=== PATIENT | male | born 1970 | race Hispanic/Latino ===

== ENCOUNTER 2020-02-17 15:05 | Outpatient (CLI) | payer OTHER, SELFPAY ==
--- NOTE | ~2020-02-17 | XR_ITS ---
XR lumbar spine 2-3V DATE: 02/17/2020 15:49 INDICATION: Persistent low back pain, greater on the right TECHNIQUE: AP, lateral, coned lateral lumbosacral views COMPARISON: None FINDINGS: There are 6 functional lumbar vertebrae. There is moderate degenerative disc disease of the mid and lower lumbar spine. No fracture or bone destruction is evident. The included lower thoracic and lumbar pedicles are intac t. The sacroiliac joints are intact. IMPRESSION: Moderate degenerative disc disease of the mid and lower lumbar spine Reviewed, dictated and finalized at location A. IMPRESSION: Moderate degenerative disc disease of the mid and lower lumbar spin e
== END 2020-02-17 15:06 | disposition home or self-care (01) ==
PROVIDERS: PCP Family Medicine Adolescent Medicine; Visit Provider Family Medicine Adolescent Medicine
DX: M51.36 Other intervertebral disc degeneration, lumbar region (principal)
CPT/HCPCS: 72100

== ENCOUNTER → 2020-12-15 14:14 | Outpatient (CLI) | payer OTHER, SELFPAY ==
--- NOTE | ~2020-12-15 | XR_ITS ---
XR lumbar spine 2-3V DATE: 12/15/2020 14:36 INDICATION: Low back pain TECHNIQUE: AP, lateral, coned lateral lumbosacral views COMPARISON: 02/17/2020 lumbar spine FINDINGS: There are 6 functional lumbar vertebrae. No fracture or bone destruction or spondylolisthesis. The included lower thoracic and lumbar pedicles are intact. Stable moderate degenerative disc disease of the mid and lower lumbar spine. The sacroiliac joints are intact. IMPRESSION: Moderate degenerative disc disease; no significant change since 02/17/2020 Reviewed, dictated and finalized at location A. IMPRESSION: Moderate degenerative disc disease; no significant change since 01/30
== END ==
PROVIDERS: PCP Family Medicine Adolescent Medicine; Visit Provider Family Medicine Adolescent Medicine
DX: M47.816 Spondylosis without myelopathy or radiculopathy, lumbar region (principal)
CPT/HCPCS: 72100

== ENCOUNTER 2021-06-02 06:37 | Outpatient (CLI) | payer OTHER, SELFPAY ==
--- NOTE | ~2021-06-02 | MR_ITS ---
EXAMINATION: MR lumbar spine wo con EXAM DATE: 06/02/2021 07:32 INDICATION: Persistent right-sided sciatica. TECHNIQUE: Multi-sequential, multiplanar MR images of the lumbar spine were obtained without contrast . Sagittal T1, T2, T2 fat saturation images. Axial T2 weighted images. There is no prior study for comparison. FINDINGS: The vertebral bodies are aligned in the AP dimension. There is mild to moderate disc diseas e at L4-5 and L5-S1. The conus medullaris terminates at the T12-L1 level and has normal signal intens ity and morphology. There are no suspicious marrow signal abnormalities. Paraspinal soft tissue is u nremarkable. Level by level evaluation: T12-L1: Disc does not extend beyond the endplate margin. Facet arthropathy: None. Neural foraminal stenosis: No stenosis. Central canal stenosis: No stenosis. L1-L2: Disc does not extend beyond the endplate margin. Facet arthropathy: Minimal. Neural foraminal stenosis: No stenosis. Central canal stenosis: No stenosis. L2-L3: There is a minimal diffuse disc bulge. Facet arthropathy: Mild. Neural foraminal stenosis: No stenosis. Central canal stenosis: No stenosis. L3-L4: There is a mild diffuse disc bulge. Facet arthropathy: Mild. Neural foraminal stenosis: Mild right, minimal left. Central canal stenosis: Mild. L4-L5: There is a moderate diffuse disc bulge. Facet arthropathy: Mild to moderate. Neural foraminal stenosis: Mild to moderate bilateral. Central canal stenosis: Moderate. L5-S1: There is a mild to moderate diffuse disc bulge, small right central annular protrusion, annula r fissure causing moderate stenosis right, some mass effect on traversing right L5-S1 nerve root. Facet arthropathy: Mild. Neural foraminal stenosis: Moderate bilateral. Central canal stenosis: Overall mild. IMPRESSION: 1. Mild to moderate lower lumbar predominant spondylosis. Reviewed, dictated and finalized at location B.
== END 2021-06-02 06:38 | disposition home or self-care (01) ==
PROVIDERS: PCP Family Medicine Adolescent Medicine; Visit Provider Family Medicine Adolescent Medicine
DX: M54.31 Sciatica, right side (principal); M47.816 Spondylosis without myelopathy or radiculopathy, lumbar region
CPT/HCPCS: 72148

== ENCOUNTER → 2023-06-20 15:11 | Outpatient (CLI) | payer OTHER, SELFPAY ==
--- NOTE | ~2023-06-20 | XR_ITS ---
XR_[id number] 06/20/2023 15:35 INDICATION: Left knee pain PROCEDURE: 2 views left knee COMPARISON: No prior studies for comparison. FINDINGS: Fracture, dislocation or subluxation is not identified. No joint effusion. No significant j oint space narrowing. The soft tissues appear within normal limits. No foreign bodies are identified . IMPRESSION: 1: No significant bone or joint abnormality. Reviewed, dictated and finalized at location A.
== END ==
PROVIDERS: PCP Nurse Practitioner Family; Visit Provider Nurse Practitioner Family
DX: M25.562 Pain in left knee (principal)
CPT/HCPCS: 73560

== ENCOUNTER 2023-09-08 14:39 | Outpatient (CLI) | payer OTHER, SELFPAY ==
--- NOTE | 2023-09-12 11:44 | WPDPFTINT ---
PFT Procedure Performed PFT Procedure Performed Spirometry with Pre/Post Bronchodilator Plethysmography (Lung Vol) Diffusing Cap (DLCO) Flow Vol Loop PFT Interpretation DOS: 09/08/2023 REQUESTING: Miranda Valdez APRN REASON FOR TESTING: chronic cough, tobacco use PULMONARY FUNCTION TESTS Testing performed and results interpreted in accordance with the 2019 and 2005 ATS /ERS Task Force guidelines respectively using the GLI 2012 reference equations. Repeatability of spirometry FEV1 maneuver pre-bronchodilator is Grade B and post- bronchodilator is Grade A. All testing completed with optimal patient effort and comfort. Spirometry: Pre-bronchodilator FEV1 is 1.68 L, 54%, moderately decreased. Pre-bronchodilator FVC is 3.43 L, 87%, normal. FEV1/FVC ratio is 49%, reduced, consistent with airflow obstruction. After bronchodilator administration, there was a 17% increase in the FEV1, 1.97 L, 63% predicted. After bronchodilator, there was a 15% increase in the FVC, 3.94 L, 100% predicted. The FEV1/ FVC ratio is 50% predicted, still below normal. These are significant responses to bronchodilator. Lung volumes: Total lung capacity is 7.62 L, 131%, elevated consistent with hyperinflation. The slow vital capacity is 4.03 L, 102% predicted, higher than the forced vital capacity. Residual volume is 3.59 L, 200% predicted, consistent with severe air trapping. RV/TLC is 47%, increased, consistent with air trapping. Diffusion: DLCO is 18.2, 67% predicted, decreased. DLCO / VA 3.39 L, 71%, decreased. Flow volume loop: There is a coving of the expiratory limb. IMPRESSION: Moderate obstructive ventilatory impairment with robust response to bronchodilator, mild hyperinflation, severe air trapping, mild diffusion impairment which does not correct for alveolar volume. This pattern can be seen in emphysema. No prior studies for comparison. Chikis Hernandez MD
== END 2023-09-08 14:40 | disposition home or self-care (01) ==
LOC: ANHPFT 14:41
PROVIDERS: PCP Nurse Practitioner Family; Visit Provider Nurse Practitioner Family
DX: R05.3 Chronic cough (principal); Z72.0 Tobacco use; R94.2 Abnormal results of pulmonary function studies
CPT/HCPCS: 94060; 94726; 94729

== ENCOUNTER 2024-06-10 01:11 | Day surgery (SDC) | payer OTHER, SELFPAY ==
[2024-06-06 12:10] VITALS: BMI 23.8
[2024-06-10 07:56] VITALS: BP 120/83; PULSE 72; RESP 18; TEMP 36.3; O2SAT 100
[2024-06-10] MEDS: LACTATED RINGERS 1,000 ML 150 ML IV CONT (08:09)
--- NOTE | 2024-06-10 08:46 | WPDANESEPPF ---
Anes - Initial Pre Proc Eval Procedure: Operation Date: 06/10/24 09:00 Proposed Procedures p Screening Colonoscopy - Donny Garcia DO Date/Time: 06/10/24 08:46 Surgeon: Donny Garcia DO Pre Op Diagnosis: Screening for malignant neoplasm of colon Patient Data Age: 53 Gender: M Height: 1.63 m Weight: 61 kg Last Vital Signs Temp 97.4 F L 06/10/24 07:56 Pulse 72 06/10/24 07:56 Resp 18 06/10/24 07:56 BP 120/83 06/10/24 07:56 Pulse Ox 100 06/10/24 07:56 O2 Del Method Room Air 06/10/24 07:56 Allergies Allergy/AdvReac Type Severity Reaction Status Date / Time No Known Allergies Allergy Mild Verified 06/10/24 07:54 Home Medications Medication Instructions Recorded Confirmed Type lorazepam 0.5 mg tablet 0.5 mg PO BID PRN anxiety #30 tabs 07/31/23 06/10/24 Rx tiotropium bromide 2.5 2 puff inhalation DAILY #4 grams 09/13/23 06/10/24 Rx mcg/actuation mist for inhalation (Spiriva Respimat) lisinopril 10 mg tablet 10 mg PO DAILY #90 tabs 10/09/23 06/10/24 Rx albuterol sulfate 90 mcg/actuation 2 inh inhalation .COMPLEX PRN 1-2 11/01/23 06/10/24 Rx aerosol inhaler puffs every 4-6 hours as needed #8.5 grams trazodone 100 mg tablet See Rx Instructions .Route 12/05/23 06/10/24 Rx .COMPLEX #30 tabs valacyclovir 500 mg tablet 500 mg PO DAILY #30 tabs 02/04/24 06/10/24 Rx baclofen 20 mg tablet 20 mg PO TID #30 tabs 03/27/24 06/10/24 Rx tadalafil 5 mg tablet 5 mg PO DAILY #30 tabs 04/29/24 06/10/24 Rx gabapentin 600 mg tablet 600 mg PO BID #60 tabs 06/04/24 06/10/24 Rx Patient hx anesthesia problems: none Family hx anesthesia problems: none Results Review: All pre-operative results and documents have been reviewed as part of the pre-operative evaluation. [facility], [facility] Past Medical History Medical History (Updated 06/05/24 @ 13:57 by Marcelle Wan) History of meniscal tear right knee Hx of hepatitis C From tattoos. Treated. Surgical History Surgical History History of knee surgery 2018: meniscus repair Family History Family History Father Lymphoma Social History Social History Smoking packs per day: 1 Smoking cigarettes per day: 20.0 Years smoked: 45 Smoking pack-years: 45.00 Smoking status: Current every day smoker Tobacco type: cigarettes Second hand tobacco smoke exposure: No Alcohol intake: current Drinks per week: 30 Alcohol use details: BEERS Substance use: current Substance use type: marijuana Other substance usage details: COUPLE TIMES A WEEK AT Lack of Transportation: No Lack of Food: Never True Current Housing: I Have Housing Concerned About Future Housing: No Difficulty Paying Gas/Electric Bills: YES Difficulty Paying for Meds: No Currently Unemployed: No Education: Don't Know Difficulty w/ Childcare or Family Care: No Living arrangements: with family Occupation/Education: unemployed Gender identity (if verbalized by the patient): Male Sexual Orientation (if Verbalized by the Patient): Straight or Heterosexual Spiritual care concerns: No Agree to blood products: Yes Anes - Eval Final PreProcedure Day of Procedure 06/10/24 08:46 Patient weight: normal Heart: regular rate and rhythm Lungs: clear to auscultation Airway: Mallampati scale class II Neurological: alert and oriented Last oral intake: >/= 8 hours ASA classification: III Emergent: no Anesthetic plan: proceed Anesthesia type and monitoring: general GIVS and standard monitoring Results Review: All pre-operative results and documents have been reviewed as part of the pre-operative evaluation. Informed Consent: The patient's anesthetic plan and its attendant risks and benefits were discussed with the patient/family/POABonnie Hawkins
--- NOTE | 2024-06-10 09:01 | PM.IMHP ---
H&P: HPI History of Present Illness Date/Time: 06/10/24 09:01 Chief Complaint: screening for colorectal cancer Narrative: this is a 53-year-old man who presents for colonoscopy. He has never had a colonoscopy before. He denies any family history of colon cancer. He was having some issues with hemorrhoids recently and was seen Dr. Wright for potential treatment. Colonoscopy was recommended prior to proceeding with hemorrhoid treatment. Review of Systems Review of Systems: All systems reviewed & are unremarkable except as noted in HPI and below Constitutional: Constitutional: Denies chills, Denies fever(s), Denies headache(s) and Denies weight loss Eyes: Eyes: Denies change in vision ENT: Denies dizziness, Denies headache(s), Denies neck mass and Denies throat swelling Cardiovascular: Cardiovascular: Denies chest pain, Denies lightheadedness and Denies dyspnea Respiratory: Respiratory: Denies cough, Denies dyspnea and Denies wheezing Gastrointestinal: Gastrointestinal: Denies abdominal pain, Denies change in bowel habits, Denies nausea and Denies vomiting Genitourinary: Genitourinary: Denies hematuria and Denies dysuria Musculoskeletal: Musculoskeletal: Reports as per HPI Integumentary/Breasts: Skin/Breast: Reports as per HPI Neurologic: Denies dizziness and Denies headache(s) Allergic/Immunologic: Allergic/Immunologic: Denies throat swelling and Denies wheezing FOR[facility]LY [facility], [facility] Past Medical History Medical History (Updated 06/10/24 @ 09:02 by Donny Garcia DO) History of meniscal tear right knee Hx of hepatitis C From tattoos. Treated. Surgical History Surgical History History of knee surgery 2018: meniscus repair Family History Family History Father Lymphoma Social History Social History Smoking packs per day: 1 Smoking cigarettes per day: 20.0 Years smoked: 45 Smoking pack-years: 45.00 Smoking status: Current every day smoker Tobacco type: cigarettes Second hand tobacco smoke exposure: No Alcohol intake: current Drinks per week: 30 Alcohol use details: BEERS Substance use: current Substance use type: marijuana Other substance usage details: COUPLE TIMES A WEEK AT Lack of Transportation: No Lack of Food: Never True Current Housing: I Have Housing Concerned About Future Housing: No Difficulty Paying Gas/Electric Bills: YES Difficulty Paying for Meds: No Currently Unemployed: No Education: Don't Know Difficulty w/ Childcare or Family Care: No Living arrangements: with family Occupation/Education: unemployed Gender identity (if verbalized by the patient): Male Sexual Orientation (if Verbalized by the Patient): Straight or Heterosexual Spiritual care concerns: No Agree to blood products: Yes Meds Home Medications and Allergies Home Medications Medication Instructions Recorded Confirmed Type lorazepam 0.5 mg tablet 0.5 mg PO BID PRN anxiety #30 tabs 07/31/23 06/10/24 Rx tiotropium bromide 2.5 2 puff inhalation DAILY #4 grams 09/13/23 06/10/24 Rx mcg/actuation mist for inhalation (Spiriva Respimat) lisinopril 10 mg tablet 10 mg PO DAILY #90 tabs 10/09/23 06/10/24 Rx albuterol sulfate 90 mcg/actuation 2 inh inhalation .COMPLEX PRN 1-2 11/01/23 06/10/24 Rx aerosol inhaler puffs every 4-6 hours as needed #8.5 grams trazodone 100 mg tablet See Rx Instructions .Route 12/05/23 06/10/24 Rx .COMPLEX #30 tabs valacyclovir 500 mg tablet 500 mg PO DAILY #30 tabs 02/04/24 06/10/24 Rx baclofen 20 mg tablet 20 mg PO TID #30 tabs 03/27/24 06/10/24 Rx tadalafil 5 mg tablet 5 mg PO DAILY #30 tabs 04/29/24 06/10/24 Rx gabapentin 600 mg tablet 600 mg PO BID #60 tabs 06/04/24 06/10/24 Rx Allergies Allergy/AdvReac Type Severity Reaction Status Date
[2024-06-10 09:24] VITALS: BP 91/62; PULSE 72; RESP 19; O2SAT 98
[2024-06-10 09:34] VITALS: BP 116/77; PULSE 69; RESP 16; O2SAT 100
[2024-06-10 09:44] VITALS: BP 120/89; PULSE 63; RESP 20; O2SAT 99
== END 2024-06-10 09:55 | disposition home or self-care (01) ==
PROVIDERS: PCP Family Medicine Adolescent Medicine; Visit Provider Surgery
PROC: 0DJD8ZZ Inspection of Lower Intestinal Tract, Via Natural or Artificial Opening Endoscopic (ICD-10-PCS; CPT 45378; principal; 2024-06-10 09:00)
DX: Z12.11 Encounter for screening for malignant neoplasm of colon (principal); K64.8 Other hemorrhoids; F17.210 Nicotine dependence, cigarettes, uncomplicated; F12.90 Cannabis use, unspecified, uncomplicated; Z79.51 Long term (current) use of inhaled steroids; Z98.890 Other specified postprocedural states; Z80.7 Family history of other malignant neoplasms of lymphoid, hematopoietic and related tissues
CPT/HCPCS: 45378; J2704; J7120

== ENCOUNTER 2024-06-25 15:26 | Outpatient (CLI) | payer OTHER, SELFPAY ==
--- NOTE | 2024-06-25 15:30 | ECG_ITS ---
Test Date: 2024-06-25 15:43:11 Measurements Intervals [place] Rate: 76 P: -13 CO: 168 QRS: -3 QRSD: 87 T: 1 QT: 335 QTc: 378 Interpretive Statements SINUS RHYTHM DELAYED PRECORDIAL R/S TRANSITION BORDERLINE T WAVE ABNORMALITY- INFERIOR LEADS BASELINE ARTIFACT- I, II, AVR, AVL, AVF BORDERLINE ECG No previous ECG available for comparison Electronically Signed On 06-25-2024 15:50:09 CDT by Daniele Crews D.O.
== END 2024-06-25 15:27 | disposition home or self-care (01) ==
LOC: ANHSURGERY 15:32
PROVIDERS: PCP Family Medicine Adolescent Medicine; Visit Provider Surgery
DX: F17.210 Nicotine dependence, cigarettes, uncomplicated (principal); R94.31 Abnormal electrocardiogram [ECG] [EKG]
CPT/HCPCS: 93005

== ENCOUNTER 2024-06-28 00:49 | Day surgery (SDC) | payer OTHER, SELFPAY ==
[2024-06-21 14:07] VITALS: BMI 23.2
--- NOTE | 2024-06-21 14:13 | PC.NURSE ---
Report to the Outpatient Waiting Room, entrance under the green pavilion located off [facility], at time _0600_ on date _[id number]_. Planned Procedure Time: _0730_.? Time changes happen often and if your time is changed the preop area will call you the afternoon before. - You and your visitor will be asked to self-screen and do not enter if you have any COVID symptoms. Please call surgeon if you need to reschedule. - A mask is optional within the hospital at this time. - No food or drink from midnight until time of surgery and no smoking Take only the following medications with a SIP of water on the morning of surgery: ___Spiriva and if needed Albuterol DO NOT STOP ANY OF YOUR OTHER PRESCRIPTION MEDICATIONS PRIOR TO SURGERY EXCEPT THE FOLLOWING Medications to discontinue per physician None Please no make-up, nail filipino, hairspray, perfume, deodorant, or body powder the day of surgery.? No jewelry (including any body piercings) or valuables the day of surgery, leave them at home.? Please take a shower or bath the night before, or the morning of, surgery with an antibacterial soap.? Wear comfortable, loose fitting clothing.? - Jewelry must be removed prior to entering the operating room.? Rings and piercings that are not removed may be cut off. - The hospital will not accept responsibility for valuables.? - Please leave all valuables, including medications, at home the day of surgery. If you are going home after surgery, a licensed tank truck driver must drive you home.? - NO public transportation without another adult if you receive anesthesia. - We recommend that an adult stay with you for 24 hours following discharge. - We also recommend that you do not drive, make important decision, drink alcoholic beverages, or take any drugs that were not prescribed by your health care provider for at least 24 hours after your discharge time. Follow any additional instructions given to you from your surgeon. Telephone instructions given to __Michael___and asked if any additional questions and then verbalized understanding. Patient advised to call surgeon office or pre surgery nurse liaison [phone] if any additional questions.
[2024-06-28] VITALS (7 sets, daily range): BP systolic 112–143; BP diastolic 80–95; PULSE 74–91; RESP 14–20; TEMP 36.4–36.9; O2SAT 97–100
[2024-06-28] MEDS: LACTATED RINGERS 1,000 ML 30 ML IV CONT ×2 (06:45→08:58)
[2024-06-28] MEDS: ACETAMINOPHEN 500 MG TABLET 1000 MG PO (06:45)
[2024-06-28] MEDS: KETOROLAC 15 MG/ML VIAL (*BKC) IV PUSH ×2 (06:45→08:43)
--- NOTE | 2024-06-28 07:09 | WPDHPUPDATE1 ---
History and Physical Update Update Date/Time: 06/28/24 07:09 History and Physical has been reviewed, including an updated exam of the patient. There are NO changes in the patient's condition. Risks, benefits, and alternatives have been discussed and questions answered. Patient agrees to proceed with procedure.
--- NOTE | 2024-06-28 07:16 | WPDANESEPPF ---
Anes - Initial Pre Proc Eval Procedure: Operation Date: 06/28/24 07:30 Proposed Procedures p Transanal Hemorrhoidal Dearterialization - Kane Wright MD Date/Time: 06/28/24 07:16 Surgeon: Kane Wright MD Pre Op Diagnosis: grade 3 bleeding internal hemorrhoids Patient Data Age: 53 Gender: M Height: 1.63 m Weight: 59.8 kg Last Vital Signs Temp 98.4 F 06/28/24 06:45 Pulse 79 06/28/24 06:45 Resp 14 06/28/24 06:45 BP 124/81 06/28/24 06:45 Pulse Ox 100 06/28/24 06:45 O2 Del Method Room Air 06/28/24 06:45 Allergies Allergy/AdvReac Type Severity Reaction Status Date / Time No Known Allergies Allergy Mild Verified 06/28/24 07:04 Home Medications Medication Instructions Recorded Confirmed Type lorazepam 0.5 mg tablet 0.5 mg PO BID PRN anxiety #30 tabs 07/31/23 06/21/24 Rx tiotropium bromide 2.5 2 puff inhalation DAILY #4 grams 09/13/23 06/21/24 Rx mcg/actuation mist for inhalation (Spiriva Respimat) lisinopril 10 mg tablet 10 mg PO DAILY #90 tabs 10/09/23 06/21/24 Rx albuterol sulfate 90 mcg/actuation 2 inh inhalation .COMPLEX PRN 1-2 11/01/23 06/21/24 Rx aerosol inhaler puffs every 4-6 hours as needed #8.5 grams trazodone 100 mg tablet See Rx Instructions .Route 12/05/23 06/21/24 Rx .COMPLEX #30 tabs valacyclovir 500 mg tablet 500 mg PO DAILY #30 tabs 02/04/24 06/21/24 Rx tadalafil 5 mg tablet 5 mg PO DAILY #30 tabs 04/29/24 06/21/24 Rx gabapentin 600 mg tablet 600 mg PO BID #60 tabs 06/04/24 06/21/24 Rx Patient hx anesthesia problems: none Family hx anesthesia problems: none Results Review: All pre-operative results and documents have been reviewed as part of the pre-operative evaluation. [facility] Past Medical History Medical History (Updated 06/10/24 @ 09:02 by Donny Garcia DO) History of meniscal tear right knee Hx of hepatitis C From tattoos. Treated. Surgical History Surgical History History of knee surgery 2018: meniscus repair Family History Family History Father Lymphoma Social History Social History Smoking packs per day: 1 Smoking cigarettes per day: 20.0 Years smoked: 45 Smoking pack-years: 45.00 Smoking status: Current every day smoker Tobacco type: cigarettes Second hand tobacco smoke exposure: No Alcohol intake: current Drinks per week: 20 Alcohol use details: BEERS Substance use: current Substance use type: marijuana Other substance usage details: COUPLE TIMES A WEEK AT Lack of Transportation: No Lack of Food: Never True Current Housing: I Have Housing Concerned About Future Housing: No Difficulty Paying Gas/Electric Bills: YES Difficulty Paying for Meds: No Currently Unemployed: No Education: Don't Know Difficulty w/ Childcare or Family Care: No Living arrangements: with family Occupation/Education: unemployed Gender identity (if verbalized by the patient): Male Sexual Orientation (if Verbalized by the Patient): Straight or Heterosexual Spiritual care concerns: No Agree to blood products: Yes Anes - Eval Final PreProcedure Day of Procedure 06/28/24 07:16 Patient weight: normal Heart: regular rate and rhythm Lungs: clear to auscultation Airway: Mallampati scale class II Neurological: alert and oriented Last oral intake: >/= 8 hours ASA classification: III Emergent: no Anesthetic plan: proceed Anesthesia type and monitoring: general ETT and standard monitoring Results Review: All pre-operative results and documents have been reviewed as part of the pre-operative evaluation. Informed Consent: The patient's anesthetic plan and its attendant risks and benefits were discussed with the patient/family/POA. Questions were solicited and answers provided to the satisfaction of
[2024-06-28] MEDS: ceFAZolin 2 GM/D5W 50 ML 2 GM/50 ML BAG IVPB (07:23)
[2024-06-28] MEDS: LIDO 1%/EPINEPHRINE 1:100,000 20 ML VIAL 30 ML INFILTRATE (08:02)
[2024-06-28] MEDS: LIDOCAINE HCL 2% GEL UROJET 10 ML PKG MUCOUS MEM (08:05)
--- NOTE | 2024-06-28 09:06 | W.PM.PROC2 ---
Procedure Note - Detailed Date of Procedure 06/28/24 Pre-op Diagnosis Grade 3 bleeding internal hemorrhoids Post-op Diagnosis Same Procedure Performed Ultrasound guided trans anal hemorrhoidal dearterialization procedure with proctopexy of prolapsing mucosa. Surgeon Kane Wright MD [employer]age [employer] KAT Adam Anesthesia General Indications Patient is a 53-year-old gentleman who presented with complaints of prolapsing tissue from his anal canal and bleeding. On examination he had a grade 3 nonthrombosed prolapsing internal hemorrhoid anteriorly at the 6 o'clock position with the patient prone. He underwent a colonoscopy which showed no other lesions in the colon which would be causing bleeding. The internal hemorrhoids was confirmed on colonoscopy. He presents now for a transanal hemorrhoidal dearterialization procedure. Findings Patient had a nonthrombosed prolapsing internal hemorrhoid at the 6 o'clock position with the patient prone. Had smaller internal hemorrhoids located at 3 o'clock and 9 o'clock positions. Description of Procedure After informed consent was obtained patient brought to the operating was placed under general endotracheal anesthesia and then placed in the prone christopher-knife position on the operating table. The buttocks and perianal region was then prepped and draped in usual sterile fashion with the buttocks taped apart. Time-out was then performed correctly identifying the patient as well as procedure to be performed. He was given perioperative IV antibiotics. I then proceeded to gently dilate the anal sphincters with a well lubricated anal speculum. Once this was done I did a circumferential evaluation of the distal rectum and anal canal. There were no polyps or lesions the distal rectum in the anal canal there was a large nonthrombosed grade 3 internal hemorrhoid. There are smaller grade 2 hemorrhoids locally at the 3 o'clock and the 9 o'clock positions with the patient prone. I then proceeded to localize the 6 terminal branches of the hemorrhoidal artery we utilizing the specialized THD Doppler speculum. This was done at 1, 3, 5, 7, 9, and 11 o'clock positions. At each of these positions the Doppler speculum was used to identify the phase arterial signal and a 2-0 Vicryl suture was placed utilizing the pivot and slot in the specialized THD speculum. The probe was then removed and then the 2-0 Vicryl suture was then run to perform a mucosal pexy of the prolapsing mucosa and internal hemorrhoid tissue. The suture was run out to the dentate line and then tied down sliding the hemorrhoid tissue up into the more proximal anal canal for proctopexy. This was done at all 6 of the above-mentioned positions. I then irrigated out the anal canal. There is no stenosis of the anal canal. No bleeding from the hemorrhoids. I then placed a piece of Gelfoam packing into the anal canal covered with urojet jelly. I then performed a perianal block with 1% lidocaine mixed with 0.5% Marcaine. Bilateral pudendal nerve blocks were also administered with the same local anesthetic mixture.. Then cleaned and then fluffed 4x4 gauze and ABD pad and disposable underwear was used for for final dressing. The patient tolerated the procedure well no complications. All sponges, needles, and instrument counts were correct at the end procedure. EBL was _25__cc. The patient was awakened and taken to recovery in stable and satisfactory condition. Implants None Estimated Blood Loss 25 Drains No Packing Yes (Gelfoam packing anal canal) Pathology None sent Complications No immediate complications Condition Stable Disposition PACU [facility] Billing Surgery - Charge Forward: Surgery Billing
[2024-06-28] MEDS: fentaNYL CITRATE INJ (*CRX) 100 MCG/2 ML VIAL 25 MCG IV PUSH ×2 (09:23→09:33)
== END 2024-06-28 10:50 | disposition home or self-care (01) ==
PROVIDERS: PCP Family Medicine Adolescent Medicine; Visit Provider Surgery
PROC: (CPT 46948; principal; 2024-06-28 07:30)
DX: K64.2 Third degree hemorrhoids (principal); F17.210 Nicotine dependence, cigarettes, uncomplicated
CPT/HCPCS: 46948; 45541; A9270; J0690; J1100; J1885; J2250; J2371; J2405; J2704; J3010; J7120

== ENCOUNTER → 2024-10-16 10:03 | Outpatient (CLI) | payer OTHER, SELFPAY ==
--- NOTE | ~2024-10-16 | XR_ITS ---
XR shoulder LT min 2V Ordering provider: Adolph Capone MD History: . M77.8 - Other enthesopathies, not elsewhere classified . Comparison: None. FINDINGS: BONES: No acute fracture or dislocation. Degenerative changes in the greater tuberosity area which ma y indicate rotator cuff injury JOINT SPACES: The acromioclavicular joint shows mild osteoarthritic changes.. The glenohumeral joint is normal. SOFT TISSUES: Normal. IMPRESSION: No acute osseous abnormality left shoulder. Reviewed, dictated and finalized at location A. 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
== END ==
LOC: EXPCRAD 10:07
PROVIDERS: PCP Family Medicine Adolescent Medicine; Visit Provider Family Medicine Adolescent Medicine
DX: M77.8 Other enthesopathies, not elsewhere classified (principal)
CPT/HCPCS: 73030

== ENCOUNTER 2025-02-14 20:57 | Emergency (ER) | payer OTHER, SELFPAY ==
--- NOTE | ~2025-02-14 | XR_ITS ---
2 VIEWS SOFT TISSUES NECK Ordering provider: Dinesh Villalba MD History: . food bolus . Comparison: None. FINDINGS: SOFT TISSUES: No prevertebral soft tissue swelling. The epiglottis is normal. The pharynx and trach ea appear patent. VERTEBRAL BODIES: Normal height and alignment. No acute osseous findings. DISK SPACES: Narrowing of the disc C3-C4, C4-C5, C5-C6 and C6-C7. Multilevel uncovertebral osteoarthr itic changes. IMPRESSION: No abnormalities in the soft tissues. Multilevel degenerative disc disease. Reviewed, dictated and finalized at location A.
[2025-02-14 21:02] VITALS: BP 135/84; PULSE 74; RESP 16; TEMP 36.7; O2SAT 100
[2025-02-15 02:49] VITALS: BP 141/92; PULSE 66; RESP 15; O2SAT 99
--- NOTE | 2025-02-15 03:43 | ED.SKABFB ---
HPI - Skin/Abscess/Foreign Bdy General Chief complaint: Skin/Abscess/Foreign Body Stated complaint: Poss chicken bone in throat Time Seen by Provider: 02/15/25 02:23 History of Present Illness HPI narrative: 54-year-old male presenting to the emergency department for possible chicken bone in his throat. Patient states he was eating chicken for dinner and felt something heart go down his throat. He is not having any difficulty swallowing or vomiting. No nauseousness or trouble breathing. States that he is able to sip water and drink and eat without any difficulty but states that he felt something hard on start was concerned something might be stuck. Thinks he may have passed already as he arrived in triage. Related Data Home Medications Medication Instructions Recorded Confirmed Last Taken Type ibuprofen 800 mg tablet 800 mg PO TID PRN 12/30/24 12/30/24 Unknown History Allergies Allergy/AdvReac Type Severity Reaction Status Date / Time No Known Allergies Allergy Mild Verified 12/30/24 07:51 Review of Systems Review of Systems: As reviewed above in HPI [facility] Past Medical History Medical History Hx of hepatitis C From tattoos. Treated. History of meniscal tear right knee Surgical History Surgical History H/O hemorrhoidectomy 06/28/24 Ultrasound guided trans anal hemorrhoidal dearterialization procedure with proctopexy of prolapsing mucosa. History of knee surgery 2018: meniscus repair Family History Family History Father Lymphoma Social History Social History Smoking packs per day: 1 Smoking cigarettes per day: 20.0 Years smoked: 45 Smoking pack-years: 45.00 Smoking status: Current every day smoker Tobacco type: cigarettes Second hand tobacco smoke exposure: No Alcohol intake: current Drinks per week: 20 Alcohol use details: BEERS Substance use: current Substance use type: marijuana Other substance usage details: COUPLE TIMES A WEEK AT Lack of Transportation: No Lack of Food: Never True Current Housing: I Have Housing Concerned About Future Housing: No Difficulty Paying Gas/Electric Bills: YES Difficulty Paying for Meds: No Currently Unemployed: No Education: Don't Know Difficulty w/ Childcare or Family Care: No Living arrangements: with family Occupation/Education: unemployed Gender identity (if verbalized by the patient): Male Sexual Orientation (if Verbalized by the Patient): Straight or Heterosexual Spiritual care concerns: No Agree to blood products: Yes Exam Narrative: GENERAL: [Well-appearing, well-nourished, and in no acute distress.] HEAD: [Normocephalic, atraumatic.] EYES: [PERRLA and EOMI.] ENT: Nares clear, no rhinorrhea or epistaxis. Mucous membranes moist. NECK: Supple. CHEST: [Clear to auscultation. No respiratory distress.] HEART: [Regular rate and rhythm]. No murmur heard. [Normal peripheral pulses.] ABDOMEN: [Soft, nondistended], [nontender], [No rigidity or guarding] EXTREMITIES: Normal range of motion. [No edema.] SKIN: Warm, dry, no rash. NEURO: [No focal deficits]. Alert and oriented [x3.] PSYCH: [Normal mood and affect.] Course Vital Signs Vital signs: Vital Signs Temperature 36.7 C 02/14/25 21:02 Pulse Rate 74 02/14/25 21:02 Respiratory Rate 16 02/14/25 21:02 Blood Pressure 135/84 02/14/25 21:02 Pulse Oximetry 100 02/14/25 21:02 Oxygen Delivery Room Air 02/14/25 21:02 Temperature 36.7 C 02/14/25 21:02 Pulse Rate 66 02/15/25 02:49 Respiratory Rate 15 02/15/25 02:49 Blood Pressure 141/92 H 02/15/25 02:49 Pulse Oximetry 99 02/15/25 02:49 Oxygen Delivery Room Air 02/14/25 21:02 MDM - Skin/Abscess/Foreign Bdy MDM Narrative Medical decision making narrative: 54-year-old male presenting to the emergency department for foreign body sensation in his throat. He was eating chicken wings and felt like maybe a bone went down his throat. He felt something hard passed into his throat. Did not injure himself and has no pain at this time. No nausea or vomiting. Denies any foreign body sensation at this time. He states that he feels like the object may have already passed. No difficulty swallowing. No nauseousness, vomiting, difficulty tolerating oral secretions. No coughing or trouble breathing. He has a unremarkable examination otherwise appears well. He is resting comfortably and tolerating oral intake at bedside. X-rays were obtained of his soft tissues of the neck to rule out any kind of foreign body. X-rays were negative for any acute process. No obvious retained foreign body. Patient has no symptoms at this time and can be safely discharged. He was given return precautions and paperwork. Medical Records Attestation: I reviewed the patient's medical records. Imaging Data Attestation: I personally reviewed and interpreted this imaging study as follows: My impression: Impressions Soft Tissue Neck X-Ray 02/14/25 22:03 IMPRESSION: No abnormalities in the soft tissues. Multilevel degenerative disc disease. Discharge Plan Discharge Clinical Impression: Feeling of foreign body in throat Patient Disposition: Home Condition: Stable Instructions: Antibiotic Form Additional Instructions: Your x-ray does not have any foreign body appreciable. Follow-up with regular doctor. Return with any emergent concerns such as inability to swallow, nauseousness, vomiting or any developing or increasing pain. Patient Language: Vietnamese Prescriptions: No Action ibuprofen 800 mg tablet 800 mg PO TID PRN albuterol sulfate 90 mcg/actuation HFA aerosol inhaler 2 inh inhalation .COMPLEX PRN (Reason: 1-2 puffs every 4-6 hours as needed) Qty: 8.5 2RF Rx Instructions: 1-2 inhalations every 4-6 hours prn PRN; tadalafil 5 mg tablet 5 mg PO DAILY Qty: 30 10RF lisinopril 10 mg tablet See Rx Instructions .ROUTE .COMPLEX Qty: 90 2RF Dose Instruction: TAKE 1 TABLET BY MOUTH DAILY Rx Instructions: TAKE 1 TABLET BY MOUTH DAILY Spiriva Respimat 2.5 mcg/actuation mist See Rx Instructions .ROUTE .COMPLEX Qty: 4 3RF Dose Instruction: INHALE 2 PUFFS BY MOUTH DAILY Rx Instructions: INHALE 2 PUFFS BY MOUTH DAILY docusate sodium [Colace] 100 mg capsule 100 mg PO BID Qty: 60 3RF valacyclovir 500 mg tablet 500 mg PO DAILY Qty: 30 8RF trazodone 100 mg tablet 100 mg PO QHS Qty: 30 6RF lorazepam 0.5 mg tablet 0.5 mg PO BID PRN (Reason: anxiety) Qty: 30 4RF gabapentin 600 mg tablet 600 mg PO BID Qty: 60 4RF baclofen 20 mg tablet 20 mg PO TID Qty: 30 2RF tamsulosin 0.4 mg capsule 0.4 mg PO DAILY Qty: 90 0RF Follow-up/Referrals: Adolph Capone MD [Primary Care Provider] - Time of Disposition: 03:48
== END 2025-02-15 04:25 | disposition home or self-care (01) ==
PROVIDERS: Emergency Provider Student in an Organized Health Care Education/Training Program; PCP Family Medicine Adolescent Medicine
DX: R09.A2 Foreign body sensation, throat (principal); F17.210 Nicotine dependence, cigarettes, uncomplicated
CPT/HCPCS: 70360; 99283